=== PATIENT | female | born 1960 | race African-American/Black ===

== ENCOUNTER 2021-08-24 08:30 | Emergency (ER) | payer SELFPAY ==
[~2021-08-24] VITALS: Ht 160 cm; Wt 77.0 kg
[2021-08-24 08:41] VITALS: BP 121/70
== END 2021-08-24 12:40 | disposition left against medical advice (07) ==
LOC: ER 08:30
DX: Z53.21 Procedure and treatment not carried out due to patient leaving prior to being seen by health care provider (principal); R10.9 Unspecified abdominal pain; R94.31 Abnormal electrocardiogram [ECG] [EKG]
CPT/HCPCS: 93005; 99283